=== PATIENT | male | born 1955 | race Caucasian/White ===

== ENCOUNTER → 2017-08-19 | Outpatient (CLI) | payer BC ==
[2017-08-19 12:15] LABS: BASO % 0.5 % (0.0-1.0); EOS # 0.2 10*3/uL (0.0-0.4); EOS % 3.7 % (1.0-4.0); HEMOGLOBIN 14.2 g/dl (14.0-18.0); LYMPH % 34.5 % (27.0-41.0); MEAN CELL VOLUME 92.5 fl (80.0-94.0); MEAN CORPUSCULAR HGB 30.5 pg (27.0-31.0); MEAN PLATELET VOLUME 9.6 fl (9.6-12.3); MONO # 0.6 10*3/uL (0.1-1.0); NEUT # 2.8 10*3/uL (2.3-7.9); NEUT % 50.1 % (47.0-73.0); PLATELET COUNT AUTOMATED 270 10*3/uL (130-400); RED BLOOD COUNT 4.65 10*6/uL (4.50-5.90); RED CELL DISTRI WIDTH 12.7 % (0-14.5); WHITE BLOOD COUNT 5.7 10*3/uL (4.8-10.8)
[2017-08-19 12:47] LABS: ALBUMIN 3.3 gm/dl (3.1-4.5); ALKALINE PHOSPHATASE 74 U/L (45-117); BILIRUBIN, DIRECT 0.2 mg/dL (0.0-0.2); BUN 15 mg/dl (7-24); CHLORIDE 106 mmol/L (98-107); CHOLESTEROL 203 mg/dL (<200); CREATININE 1.06 mg/dL (0.70-1.30); HDL CHOLESTEROL 44 mg/dl (40-60); LDL CHOLESTEROL 147 mg/dL (9-159); POTASSIUM 4.2 mmol/L (3.5-5.1); SGOT/AST 21 IU/L (3-35); SGPT/ALT 19 U/L (12-78); SODIUM 140 mmol/L (136-145); TOTAL PROTEIN 7.2 gm/dL (6.4-8.2); TRIGLYCERIDES 62 mg/dl (<150); VLDL CHOLESTEROL 12 mg/dL (6-40)
[2017-08-19 12:52] LABS: THYROXINE (T4) TOTAL 5.6 ug/dl (4.5-12.1)
== END | disposition home or self-care (01) ==
LOC: LAB 11:53
PROVIDERS: Family Medicine
DX: Z12.5 Encounter for screening for malignant neoplasm of prostate (principal); R35.1 Nocturia; R79.89 Other specified abnormal findings of blood chemistry

== ENCOUNTER → 2018-07-13 | Outpatient (CLI) | payer BC ==
[~2018-07-13] MED LIST: ARMOUR THYROID60 MG PO; ZESTRIL20 MG PO
[2018-07-13 20:25] LABS: BASO # 0.1 10*3/uL (0.0-0.1); BASO % 0.6 % (0.0-1.0); EOS # 0.2 10*3/uL (0.0-0.4); EOS % 2.7 % (1.0-4.0); HEMATOCRIT 43.6 % (42.0-52.0); HEMOGLOBIN 14.7 g/dl (14.0-18.0); LYMPH # 2.4 10*3/uL (1.3-4.4); LYMPH % 28.6 % (27.0-41.0); MEAN CELL VOLUME 91.8 fl (80.0-94.0); MEAN CORPUSCULAR HGB 30.9 pg (27.0-31.0); MEAN CORPUSCULAR HGB CONC 33.7 g/dl (33.0-37.0); MEAN PLATELET VOLUME 9.7 fl (9.6-12.3); MONO # 0.7 10*3/uL (0.1-1.0); MONO % 7.9 % (3.0-9.0); NEUT % 59.8 % (47.0-73.0); PLATELET COUNT AUTOMATED 197 10*3/uL (130-400); RED BLOOD COUNT 4.75 10*6/uL (4.50-5.90); RED CELL DISTRI WIDTH 12.6 % (0-14.5); WHITE BLOOD COUNT 8.4 10*3/uL (4.8-10.8)
[2018-07-13 20:54] LABS: ALBUMIN 3.7 gm/dl (3.1-4.5); ALKALINE PHOSPHATASE 81 U/L (45-117); BILIRUBIN, DIRECT 0.3 mg/dL (0.0-0.2); BUN 13 mg/dl (7-24); CHLORIDE 102 mmol/L (98-107); POTASSIUM 3.8 mmol/L (3.5-5.1); SGOT/AST 21 IU/L (3-35); SGPT/ALT 17 U/L (12-78); SODIUM 141 mmol/L (136-145); THYROXINE (T4) TOTAL 6.6 ug/dl (4.5-12.1); TOTAL PROTEIN 7.5 gm/dL (6.4-8.2)
== END | disposition home or self-care (01) ==
LOC: LAB 19:56
PROVIDERS: Family Medicine
DX: E03.9 Hypothyroidism, unspecified (principal); R73.9 Hyperglycemia, unspecified; R63.4 Abnormal weight loss

== ENCOUNTER 2018-08-10 06:37 | Inpatient (IN) | payer BC ==
[2018-08-10] VITALS (9 sets, daily range): BP systolic 154–185; BP diastolic 74–108
[~2018-08-10] VITALS: Ht 182.8 cm; Wt 74.9 kg
--- NOTE | ~2018-08-10 | EKG ---
[place], [place] ELECTROCARDIOGRAM REPORT NAME: RENATO HOLGUIN UNIT #: [id number] ROOM: 502 DOCTOR: HETAL DRAFT REPORT BIRTHDATE: [address] [facility] Test Date: 2018-08-10 Test Time: 10:56:22 Pat Name: RENATO HOLGUIN Department: Room: [facility] Gender: M Certified Cytotechnologist: Laisha Chapman : 1955 Requested By: CHAY HURT Order Number: [id number] Reading MD: Wood Potts MD Measurements Intervals [place] Rate: 84 P: 73 MO: 151 QRS: 65 QRSD: 100 T: -46 QT: 380 QTc: 450 Interpretive Statements Sinus rhythm Left atrial enlargement Borderline T abnormalities, diffuse leads No previous ECG available for comparison Electronically Signed On 08-10-2018 16:03:35 PST by Wood Potts MD CM:EKGRPT:ELECTROCARDIOGRAM REPORT [id number] CHAY HURT MD EPIPHANY DRAFT REPORT CHAY HURT MD
[2018-08-10 07:21] LABS: BASO # 0.1 10*3/uL (0.0-0.1); BASO % 0.8 % (0.0-1.0); EOS # 0.2 10*3/uL (0.0-0.4); EOS % 2.5 % (1.0-4.0); HEMATOCRIT 44.6 % (42.0-52.0); HEMOGLOBIN 14.9 g/dl (14.0-18.0); LYMPH # 1.7 10*3/uL (1.3-4.4); LYMPH % 27.8 % (27.0-41.0); MEAN CELL VOLUME 90.3 fl (80.0-94.0); MEAN CORPUSCULAR HGB 30.2 pg (27.0-31.0); MEAN CORPUSCULAR HGB CONC 33.4 g/dl (33.0-37.0); MEAN PLATELET VOLUME 9.9 fl (9.6-12.3); MONO # 0.5 10*3/uL (0.1-1.0); MONO % 7.7 % (3.0-9.0); NEUT # 3.7 10*3/uL (2.3-7.9); NEUT % 60.9 % (47.0-73.0); PLATELET COUNT AUTOMATED 200 10*3/uL (130-400); RED BLOOD COUNT 4.94 10*6/uL (4.50-5.90); RED CELL DISTRI WIDTH 12.4 % (0-14.5)
[2018-08-10 07:30] LABS: ACT PARTIAL THROMBO TIME 20.9 SECONDS (20.8-31.5)
[2018-08-10 07:47] LABS: ALBUMIN 3.6 gm/dl (3.1-4.5); ALKALINE PHOSPHATASE 89 U/L (45-117); BUN 14 mg/dl (7-24); CHLORIDE 103 mmol/L (98-107); POTASSIUM 3.1 mmol/L (3.5-5.1); SGOT/AST 17 IU/L (3-35); SGPT/ALT 14 U/L (12-78); SODIUM 138 mmol/L (136-145); TOTAL PROTEIN 7.6 gm/dL (6.4-8.2)
[2018-08-10 08:34] LABS: THYROID STIM HORMONE (HS) 10.2 uIU/ml (0.358-4.75)
[2018-08-10 10:53] LABS: BILIRUBIN NEGATIVE (NEGATIVE); BLOOD NEGATIVE (NEGATIVE); CLARITY SL CLOUDY (CLEAR); COLOR YELLOW (YELLOW); GLUCOSE 1+ (NEGATIVE); KETONE 1+ (NEGATIVE); LEUKO ESTERASE NEGATIVE (NEGATIVE); NITRITE NEGATIVE (NEGATIVE); PH 8.5 (5.0-9.0); UROBILINOGEN 0.2 E.U./dl (0.2-1.0)
[2018-08-10 11:01] LABS: BACTERIA TRACE; WBC 0-2 wbc/hpf (0-5)
[2018-08-10] MEDS ORDERED: ARMOUR THYROID60 MG PO (13:23)
[2018-08-11] VITALS: BP 117/65; BP 152/88
[2018-08-11 01:30] VITALS: BP 160/92
[2018-08-11 06:59] LABS: ACT PARTIAL THROMBO TIME 22.3 SECONDS (20.8-31.5)
[2018-08-11 07:08] LABS: ALKALINE PHOSPHATASE 72 U/L (45-117); BASO % 0.2 % (0.0-1.0); BUN 15 mg/dl (7-24); CHLORIDE 101 mmol/L (98-107); CHOLESTEROL 181 mg/dL (<200); CREATININE 1.21 mg/dL (0.70-1.30); EOS % 0.3 % (1.0-4.0); FREE T4 0.77 ng/dl (0.76-1.46); HDL CHOLESTEROL 49 mg/dl (40-60); HEMATOCRIT 40.2 % (42.0-52.0); LDL CHOLESTEROL 116 mg/dL (9-159); LYMPH # 1.3 10*3/uL (1.3-4.4); LYMPH % 13.9 % (27.0-41.0); MEAN CORPUSCULAR HGB 30.6 pg (27.0-31.0); MEAN CORPUSCULAR HGB CONC 32.3 g/dl (33.0-37.0); MEAN PLATELET VOLUME 10.3 fl (9.6-12.3); MONO # 0.6 10*3/uL (0.1-1.0); MONO % 6.3 % (3.0-9.0); NEUT # 7.6 10*3/uL (2.3-7.9); NEUT % 79.1 % (47.0-73.0); PHOSPHOROUS 3.2 mg/dL (2.5-4.9); PLATELET COUNT AUTOMATED 170 10*3/uL (130-400); POTASSIUM 3.8 mmol/L (3.5-5.1); RED BLOOD COUNT 4.25 10*6/uL (4.50-5.90); SGOT/AST 13 IU/L (3-35); SGPT/ALT 13 U/L (12-78); SODIUM 138 mmol/L (136-145); TOTAL PROTEIN 6.1 gm/dL (6.4-8.2); TRIGLYCERIDES 80 mg/dl (<150); VLDL CHOLESTEROL 16 mg/dL (6-40); WHITE BLOOD COUNT 9.6 10*3/uL (4.8-10.8)
[2018-08-11 07:14] LABS: MEAN CELL VOLUME 94.6 fl (80.0-94.0)
[2018-08-11 07:22] LABS: VITAMIN D, 25-HYDROXY 22.4 ng/mL (30-100)
[2018-08-11 08:00] VITALS: BP 130/74
[2018-08-11 11:32] VITALS: BP 128/71
[2018-08-11] MEDS ORDERED: ZESTRIL20 MG PO (13:21)
== END 2018-08-11 10:43 | disposition home or self-care (01) | DRG 305 ==
LOC: ED 06:37 → 5E 11:37 → EDHOLD 11:37 → 5E 11:52
PROVIDERS: Emergency Medicine; Internal Medicine; ADMIT Internal Medicine
PROC: 3E0T3BZ Introduction of Anesthetic Agent into Peripheral Nerves and Plexi, Percutaneous Approach (ICD-10-PCS; principal; 2018-08-10)
DX: I16.1 Hypertensive emergency (principal); K90.41 Non-celiac gluten sensitivity; G43.909 Migraine, unspecified, not intractable, without status migrainosus; E87.6 Hypokalemia; I10 Essential (primary) hypertension; E03.9 Hypothyroidism, unspecified; R73.03 Prediabetes; K57.90 Diverticulosis of intestine, part unspecified, without perforation or abscess without bleeding; R73.9 Hyperglycemia, unspecified; Z88.0 Allergy status to penicillin; Z88.8 Allergy status to other drugs, medicaments and biological substances; Z82.49 Family history of ischemic heart disease and other diseases of the circulatory system

== ENCOUNTER → 2018-12-06 | Outpatient (CLI) | payer BC ==
[2018-12-06 09:34] LABS: THYROXINE (T4) TOTAL 7.8 ug/dl (4.5-12.1)
[2018-12-06 09:35] LABS: THYROID STIM HORMONE (HS) 0.283 uIU/ml (0.358-4.75)
== END | disposition home or self-care (01) ==
LOC: LAB 08:21
PROVIDERS: Family Medicine
DX: E03.9 Hypothyroidism, unspecified (principal)

== ENCOUNTER → 2019-01-12 | Outpatient (CLI) | payer BC ==
[2019-01-12 10:12] LABS: THYROXINE (T4) TOTAL 7.6 ug/dl (4.5-12.1)
[2019-01-12 10:17] LABS: THYROID STIM HORMONE (HS) 1.13 uIU/ml (0.358-4.75)
== END | disposition home or self-care (01) ==
LOC: LAB 09:04
PROVIDERS: Family Medicine
DX: E03.9 Hypothyroidism, unspecified (principal)

== ENCOUNTER → 2019-05-27 | Outpatient (CLI) | payer BC | END | disposition home or self-care (01) | LOC: MRI 09:00 | DX: M19.012 Primary osteoarthritis, left shoulder (principal); M75.52 Bursitis of left shoulder ==

== ENCOUNTER → 2019-06-29 | Outpatient (CLI) | payer BC ==
[2019-06-29 10:35] LABS: BASO # 0.1 10*3/uL (0.0-0.1); BASO % 0.9 % (0.0-1.0); EOS # 0.3 10*3/uL (0.0-0.4); EOS % 5.7 % (1.0-4.0); HEMATOCRIT 46.4 % (42.0-52.0); HEMOGLOBIN 14.9 g/dl (14.0-18.0); LYMPH # 1.5 10*3/uL (1.3-4.4); LYMPH % 27.7 % (27.0-41.0); MEAN CELL VOLUME 94.5 fl (80.0-94.0); MEAN CORPUSCULAR HGB 30.3 pg (27.0-31.0); MEAN CORPUSCULAR HGB CONC 32.1 g/dl (33.0-37.0); MEAN PLATELET VOLUME 9.8 fl (9.6-12.3); MONO # 0.7 10*3/uL (0.1-1.0); MONO % 12.2 % (3.0-9.0); NEUT # 2.9 10*3/uL (2.3-7.9); NEUT % 53.3 % (47.0-73.0); PLATELET COUNT AUTOMATED 209 10*3/uL (130-400); RED BLOOD COUNT 4.91 10*6/uL (4.50-5.90); RED CELL DISTRI WIDTH 12.8 % (0-14.5); WHITE BLOOD COUNT 5.4 10*3/uL (4.8-10.8)
[2019-06-29 10:50] LABS: BUN 16 mg/dl (7-24); CHLORIDE 111 mmol/L (98-107); POTASSIUM 4.6 mmol/L (3.5-5.1); SODIUM 141 mmol/L (136-145)
== END | disposition home or self-care (01) ==
LOC: LAB 09:53
PROVIDERS: Physician Assistant Medical
DX: Z01.818 Encounter for other preprocedural examination (principal); M75.122 Complete rotator cuff tear or rupture of left shoulder, not specified as traumatic; M75.22 Bicipital tendinitis, left shoulder